=== PATIENT | male | born 1965 | race Two or more races ===

== ENCOUNTER 2018-02-13 10:46 | Emergency (ER) | payer MEDICAID ==
[~2018-02-13] VITALS: Ht 167.6 cm; Wt 85.0 kg
[2018-02-13] MEDS ORDERED: IV NS 0.9% 500 ML BAG IV ONE (11:00)
[2018-02-13] MEDS ORDERED: HYDROMORPHONE 1 MG/1 ML DISP.SYRIN IV ONE ×2 (11:00→13:00)
[2018-02-13] MEDS ORDERED: ONDANSETRON HCL/PF 4 MG/2 ML VIAL IV ONE ×2 (11:00→13:00)
--- NOTE | 2018-02-13 11:00 | NUR ---
CAROLYN RA 88 "cleaning windows on the second floor fell down landed sitting pain on R hip/leg" NAD noted, VSS, resp even and unlabored, pt was put on monitor, waiting for md narayan
[2018-02-13] MEDS ORDERED: HYDROMORPHONE 1 MG/1 ML DISP.SYRIN ONE ×2 (11:06→12:46)
[2018-02-13] MEDS ORDERED: ONDANSETRON HCL/PF 4 MG/2 ML VIAL ONE ×2 (11:06→12:48)
[2018-02-13 11:12] LABS: BASOPHILS % (AUTO) 0.1 % (0.0-2.0); EOSINOPHILS % (AUTO) 0.3 % (0.0-6.0); HEMATOCRIT 39 % (39-51); HEMOGLOBIN 13.2 g/dL (13.5-17.5); LYMPHOCYTES # (AUTO) 1.4 /CMM (0.8-4.8); LYMPHOCYTES % (AUTO) 15.1 % (20.0-44.0); MEAN CORPUSCULAR HGB CONC 34 g/dl (31.0-36.0); MEAN CORPUSCULAR VOLUME 89 fL (80-96); MONOCYTES # (AUTO) 0.7 /CMM (0.1-1.30); MONOCYTES % (AUTO) 6.8 % (2.0-12.0); NEUTROPHILS # (AUTO) 7.5 /CMM (1.8-8.9); NEUTROPHILS % (AUTO) 77.7 % (43.0-81.0); PLATELET COUNT (AUTO) 374 /CMM (150-450); RDW COEFFICIENT OF VARIATION 12.5 (11.5-15.0); RED BLOOD CELL COUNT(AUTO) 4.41 MIL/uL (4.5-6.0); WHITE BLOOD COUNT (AUTO) 9.6 K/uL (4.3-11.0)
[2018-02-13 11:24] LABS: CALCIUM, SERUM 8.4 mg/dL (8.5-10.1); CREATININE 0.9 mg/dL (0.6-1.3); POTASSIUM 4.4 mmol/L (3.5-5.1)
[2018-02-13 11:28] LABS: INR 0.91 (0.85-1.15)
[2018-02-13 12:17] LABS: INR 0.91 (0.85-1.15)
[2018-02-13 12:19] LABS: PARTIAL THROMBOPLASTIN TIME < 20 SEC (23-34)
--- NOTE | 2018-02-13 12:40 | NUR ---
ORTHO ON-CALL PAGED
[2018-02-13] MEDS ORDERED: LIDOCAINE 2% JEL UROJET 10 ML MM ONE (12:46)
[2018-02-13] MEDS ORDERED: IV NS 0.9% 250 ML IV ONE (13:02)
[2018-02-13] MEDS ORDERED: IOHEXOL-300 100 ML VIAL IV ONE (13:02)
[2018-02-13] MEDS ORDERED: CT SWABBABLE VALVE TRANS SET 1 EA INFUS.SET MC ONE (13:02)
--- NOTE | 2018-02-13 13:38 | NUR ---
[facility] CALLED, SPOKE WITH JORGE, CLINICALS AND FACESHEET FAXED TO [phone] REQUESTED, CONTACT PHONE -[phone]
--- NOTE | 2018-02-13 13:57 | NUR ---
RECEIVED A CALL FROM RUSTY AT [facility], WAS TOLD THAT THE PT HAS BEEN ACCEPTED UNDER DR DEL VALLE AND DR ABREU. [facility]# [id number]
--- NOTE | 2018-02-13 14:02 | NUR ---
CALLED [facility] FOR ALS TRANSPORT. GIVEN A FLEXIBLE BABYSITTER TIME OF 1400 TRIP #[id number]
--- NOTE | 2018-02-13 14:30 | NUR ---
CALLED DAVY TO UPGRADE ALS TRANSPORT TO [facility] [place] [facility]
[2018-02-13 14:59] LABS: BASOPHILS % (AUTO) 0.1 % (0.0-2.0); EOSINOPHILS % (AUTO) 0.1 % (0.0-6.0); HEMATOCRIT 35 % (39-51); HEMOGLOBIN 11.9 g/dL (13.5-17.5); LYMPHOCYTES % (AUTO) 5.6 % (20.0-44.0); MEAN CORPUSCULAR HGB CONC 34 g/dl (31.0-36.0); MEAN CORPUSCULAR VOLUME 89 fL (80-96); MONOCYTES # (AUTO) 1.2 /CMM (0.1-1.30); MONOCYTES % (AUTO) 7.1 % (2.0-12.0); NEUTROPHILS % (AUTO) 87.1 % (43.0-81.0); PLATELET COUNT (AUTO) 287 /CMM (150-450); RDW COEFFICIENT OF VARIATION 12.5 (11.5-15.0); RED BLOOD CELL COUNT(AUTO) 3.91 MIL/uL (4.5-6.0); WHITE BLOOD COUNT (AUTO) 17.2 K/uL (4.3-11.0)
[2018-02-13 15:45] VITALS: BP 146/85
== END 2018-02-13 15:57 | disposition short-term general hospital (02) ==
LOC: ER 10:48
DX: S32.89XA Fracture of other parts of pelvis, initial encounter for closed fracture (principal); I10 Essential (primary) hypertension; E11.9 Type 2 diabetes mellitus without complications; W01.0XXA Fall on same level from slipping, tripping and stumbling without subsequent striking against object, initial encounter; Y93.89 Activity, other specified; Y92.89 Other specified places as the place of occurrence of the external cause; Y99.8 Other external cause status
CPT/HCPCS: 36415; 71045-TC; 72131-TC; 72192-TC; 73552; 80048-TC; 85025-TC; 85730-TC; 86850-TC; A4606; J1170; J2405; J3490; J7030; J7040; J7050; Q9967; Z7610